=== PATIENT | female | born 1985 | race Caucasian/White ===

== ENCOUNTER 2017-08-20 17:40 | Emergency (ER) | payer OTHER ==
[2017-08-20 17:43] VITALS: BP 133/80
== END 2017-08-20 21:59 | disposition home or self-care (01) ==
LOC: ED 17:40
DX: S93.401A Sprain of unspecified ligament of right ankle, initial encounter (principal); R03.0 Elevated blood-pressure reading, without diagnosis of hypertension; Z88.0 Allergy status to penicillin; Z88.1 Allergy status to other antibiotic agents; X58.XXXA Exposure to other specified factors, initial encounter; Y93.89 Activity, other specified; Y92.89 Other specified places as the place of occurrence of the external cause; Y99.8 Other external cause status
CPT/HCPCS: Q0092

== ENCOUNTER 2018-12-30 21:03 | Emergency (ER) | payer OTHER ==
[~2018-12-30] VITALS: Ht 162.6 cm; Wt 120.7 kg
[2018-12-30 21:18] VITALS: Ht 162.6 cm; Wt 120.7 kg
[2018-12-30 22:46] VITALS: BP 155/81
== END 2018-12-30 22:47 | disposition home or self-care (01) ==
LOC: ED 21:03
DX: J40 Bronchitis, not specified as acute or chronic (principal); Z88.0 Allergy status to penicillin; Z88.1 Allergy status to other antibiotic agents
CPT/HCPCS: Q0092

== ENCOUNTER 2019-12-08 12:08 | Emergency (ER) | payer OTHER ==
[~2019-12-08] VITALS: Ht 165.1 cm; Wt 118.4 kg
[2019-12-08 12:18] VITALS: Ht 165.1 cm; Wt 118.4 kg
[2019-12-08 14:26] VITALS: BP 120/63
== END 2019-12-08 14:26 | disposition home or self-care (01) ==
LOC: ED 12:08
DX: H66.91 Otitis media, unspecified, right ear (principal); R05 Cough; R09.81 Nasal congestion
CPT/HCPCS: J7613; Q0092